=== PATIENT | male | born 1955 | race American Indian/Alaskan Native ===

== ENCOUNTER 2016-07-13 11:28 | Outpatient (CLI) | payer MEDICARE ==
--- NOTE | 2016-07-13 12:21 | XRay Report ---
ROUTINE CHEST, TWO VIEWS: HISTORY: Cough. There is subtle infiltrate in the right upper lobe concerning for early pneumonia. The left lung is clear. No pleural effusion or pneumothorax. Normal heart and mediastinal structures. Normal bony thorax. IMPRESSION: Subtle right upper lobe infiltrate concerning for pneumonia. If no fever is present, further evaluation with CT chest with contrast is recommended.
== END 2016-07-13 11:29 | disposition home or self-care (01) ==
LOC: XRAY 11:28
PROVIDERS: ATTEND Internal Medicine
DX: R05 Cough (principal); R91.8 Other nonspecific abnormal finding of lung field
CPT/HCPCS: 71020

== ENCOUNTER 2018-03-03 07:00 | Outpatient (CLI) | payer MEDICARE ==
--- NOTE | 2018-03-03 17:58 | Magnetic Resonance Report ---
FINAL REPORT EXAM: MR CERVICAL SPINE WO CON HISTORY: CERVICAL RADICULITIS AND STENOSIS/HX ACDF TECHNIQUE: T1 and T2 weighted sagittal and T2 weighted axial images of the cervical spine were obtained. Comparison: None FINDINGS: Marrow signal and bony alignment are normal. The vertebral heights are maintained. There is previous C6-C7 anterior discectomy and fusion with retained hardware. There is loss of height of the C3-C4 and C5-C6 discs. There is the appearance of canal stenosis at the C3-C4, C4-C5 and C5-C6 level secondary to spondylitic change. There is mild impingement on the anterior aspect of the cervical cord at the C3-C4 and C5-C6 levels. The cervical cord is normal in size and signal. The paraspinous soft tissues are unremarkable. C2-C3: Unremarkable. C3-C4: Mild canal and moderate to marked bilateral foraminal stenosis, central disc protrusion/herniation, degenerative facet change, uncovertebral degenerative change. C4-C5: Mild canal stenosis, moderate to marked foraminal stenosis, endplate osteophyte/disc complex formation, uncovertebral degenerative change, degenerative facet change. C5-C6: Mild canal stenosis, moderate bilateral foraminal stenosis, endplate osteophyte/disc complex formation, uncovertebral degenerative change, degenerative facet change C6-C7: Previous anterior discectomy and fusion. C7-T1: Degenerative facet change. IMPRESSION: 1. Spondylitic change with multiple level canal and foraminal stenosis. 2. Previous anterior discectomy and fusion with retained hardware C6-C7.
== END 2018-03-03 07:01 | disposition home or self-care (01) ==
LOC: MRI 07:00
PROVIDERS: ATTEND Anesthesiology
DX: M47.893 Other spondylosis, cervicothoracic region (principal); M48.02 Spinal stenosis, cervical region; I10 Essential (primary) hypertension; K21.9 Gastro-esophageal reflux disease without esophagitis; Z90.49 Acquired absence of other specified parts of digestive tract
CPT/HCPCS: 72141

== ENCOUNTER 2018-08-08 05:48 | Day surgery (SDC) | payer MEDICARE ==
[2018-08-08] MEDS ORDERED: ECOTRIN PO ONE (06:40)
[2018-08-08 07:12] LABS: Hematocrit 38.1 % (35.5-45.6); Hemoglobin 12.8 gm/dl (11.8-15.2); Mean Corpuscular HGB Conc 34 % (32-34); Mean Corpuscular Volume 85 fl (84-94); Platelet Count 188 K/mm3 (140-440); Red Blood Count 4.48 M/mm3 (3.65-5.03); Red Cell Distribution Width 13.7 % (13.2-15.2)
[2018-08-08] MEDS: NACL 0.9% 500 ML 500 ML IV SCH ×2 (07:16→09:08)
[2018-08-08 07:27] LABS: INR 0.91 (0.87-1.13)
[2018-08-08 07:28] LABS: Partial Thromboplastin Time 30.4 Sec. (24.2-36.6)
[2018-08-08 07:30] LABS: BUN/Creatinine Ratio 11; Blood Urea Nitrogen 11 mg/dL (9-20); Calcium 9.2 mg/dL (8.4-10.2); Hemolysis Index 26
[2018-08-08] MEDS ORDERED: HEPARIN/NS 5000 UNIT/500ML(CATH LAB) 1,000 ML IR ONE (08:16)
[2018-08-08 08:39] LABS: Anisocytosis 1+; Basophils % (Manual) 0 % (0.0-1.8); Eosinophils % (Manual) 0 % (0.0-4.3); Poikilocytosis 1+; Total Cells Counted 100
[2018-08-08 08:40] LABS: Ovalocytes Few; Platelet Estimate Consistent w Auto
[2018-08-08] MEDS: SUBLIMAZE ONE ×2 (09:09→09:16)
[2018-08-08] MEDS: VERSED ONE ×2 (09:09→09:19)
[2018-08-08] MEDS: XYLOCAINE 2% INFILTRATI ONE ×2 (09:09→09:16)
[2018-08-08] MEDS: CALAN ONE ×4 (09:10→09:27)
[2018-08-08] MEDS: HEPARIN 10,000 UNITS/10 ML ONE ×4 (09:10→09:27)
[2018-08-08] MEDS: NITROGLYCERIN SYRINGE 3 ML ONE ×2 (09:11→09:27)
[2018-08-08 11:41] VITALS: BP 166/72
--- NOTE | 2018-08-08 18:44 | Cardiac Catherization Report ---
HISTORY: The patient is a 63-year-old male with a history of shortness of breath and an abnormal stress test. Coronary angiography was recommended. PROCEDURE: Left heart catheterization, ventriculography, and coronary angiography via the right radial artery using 5-[place] Samuel catheters and a modified right Amplatz, and pigtail catheter. COMPLICATIONS: None. TISSUE SAMPLES: None. PREPROCEDURE DIAGNOSIS: Coronary artery disease. POSTPROCEDURE DIAGNOSES: Mild coronary artery disease. ESTIMATED BLOOD LOSS: 10-20 mL. SEDATION: Intravenous Versed and fentanyl. HEMODYNAMICS: Central aortic pressure 118/67, left ventricular pressure 119/17. ANGIOGRAPHIC RESULTS: 1. Left ventricle: The ventriculogram reveals a normal sized left ventricle with normal systolic function. The ejection fraction is approximately 55%. 2. Right coronary artery: This is a codominant vessel and it is diffusely irregular. The ostium is narrowed by 50-60%. This may be atherosclerosis versus spasm. There was no dampening of the pressure or difficulty in cannulating the vessel. 3. Left coronary artery: This vessel is diffusely irregular. The left main is free of remarkable lesions. The circumflex contains an ostial 40% lesion. The LAD contains an ostial 40% stenosis and the mid LAD contains a 20% stenosis. SEDATION TIME: Initiated at 9:09 a.m. PROCEDURE START TIME: 9:15 a.m. PROCEDURE STOP TIME: 9:45 a.m. TOTAL SEDATION TIME: 36 minutes. FINAL IMPRESSION: Relatively mild diffuse coronary artery disease with normal left ventricular function. Note the ostium of the right coronary artery was stenosed to moderate degree, this may have been coronary spasm. The narrowing was noted after the procedure was complete. PLAN: Aggressive medical therapy, CAD risk factor modification. Office followup within 7 days. Consider pulmonary workup with shortness of breath continues. JOB# [id number] GOYO/STEFFANY
== END 2018-08-08 13:00 | disposition home or self-care (01) ==
LOC: CATHLABREC 05:48
PROVIDERS: ATTEND Internal Medicine Cardiovascular Disease
DX: I25.10 Atherosclerotic heart disease of native coronary artery without angina pectoris (principal); E78.00 Pure hypercholesterolemia, unspecified; I10 Essential (primary) hypertension; I48.91 Unspecified atrial fibrillation; K21.9 Gastro-esophageal reflux disease without esophagitis; M19.90 Unspecified osteoarthritis, unspecified site; E03.9 Hypothyroidism, unspecified; F32.9 Major depressive disorder, single episode, unspecified; Z98.890 Other specified postprocedural states; Z90.49 Acquired absence of other specified parts of digestive tract; Z79.899 Other long term (current) drug therapy; Z98.42 Cataract extraction status, left eye; Z98.41 Cataract extraction status, right eye
CPT/HCPCS: 36415; 80048; 85007; 85025; 85610; 85730; 93005; 93010; 93458; 99156; 99157; C1769; C1894; J1644; J2250; J3010; J7040; Q9967

== ENCOUNTER 2021-01-22 10:22 | Outpatient (CLI) | payer MEDICARE ==
[2021-01-22 11:25] LABS: Blood Urea Nitrogen 14 mg/dL (9-20)
--- NOTE | 2021-01-22 12:42 | Cat Scan Report ---
CTA CHEST WITH CONTRAST INDICATION : ATHEROSCLEROTIC HEART DISEASE OMNI 350 100 ML. TECHNIQUE: Axial imaging performed through the chest, with contrast bolus timing set to maximize opa cification of the pulmonary arteries. Sagittal and coronal reformatted images. 3-plane MIP reformatte d images were obtained. All CT scans at this location are performed using CT dose reduction for ALAR A by means of automated exposure control. 100 mL of intravenous contrast administered. COMPARISON: None FINDINGS: Bolus: Contrast bolus timing is adequate. PTE: No filling defect is present to suggest PTE. Aorta: The aorta is normal caliber with minimal partially calcified plaques near the arch. No aneurys m, stenosis or dissection. Aberrant origin of the right subclavian artery is noted which passes poste rior to the trachea and esophagus. Mediastinum: Heart size is within normal limits. Mild to moderate coronary artery calcifications are noted in the left anterior descending. No pericardial abnormality. No pathologic mediastinal adenop athy. Lungs: The lungs are clear with no significant parenchymal disease. No evidence for mass, infiltrate , pleural fluid or pneumothorax. Bones: Degenerative changes in the spine with nothing acute. Upper abdomen: Limited imaging of the upper abdomen shows nothing acute. IMPRESSION: Mild coronary artery disease as described. No evidence for pulmonary embolus. Thoracic aorta is normal caliber and without acute abnormality. Aberrant origin of the right subclavi an artery is noted as described. Lungs clear. Signer Name: Joaquim Jain Jr, MD Signed: 01/22/2021 12:37 PM Workstation Name: [id number]
== END 2021-01-22 10:23 | disposition home or self-care (01) ==
LOC: CT 10:22
PROVIDERS: ATTEND Internal Medicine Cardiovascular Disease
DX: I25.10 Atherosclerotic heart disease of native coronary artery without angina pectoris (principal); M47.814 Spondylosis without myelopathy or radiculopathy, thoracic region
CPT/HCPCS: 36415; 71275; 82565; 84520; Q9967

== ENCOUNTER 2021-07-22 07:28 | Day surgery (SDC) | payer MEDICARE ==
[2021-07-22] MEDS ORDERED: ASPIRIN EC 325 MG TAB PO SCH (08:30)
[2021-07-22 08:57] LABS: Basophils % (Auto) 0.6 % (0.0-1.8); Eosinophils # (Auto) 0.1 K/mm3 (0.0-0.4); Eosinophils % (Auto) 2.2 % (0.0-4.3); Hematocrit 40.6 % (35.5-45.6); Lymphocytes # (Auto) 1.9 K/mm3 (1.2-5.4); Lymphocytes % (Auto) 54.5 % (13.4-35.0); Mean Corpuscular HGB Conc 32 % (32-34); Mean Corpuscular Volume 83 fl (84-94); Monocytes # (Auto) 0.3 K/mm3 (0.0-0.8); Monocytes % (Auto) 7.7 % (0.0-7.3); Platelet Count 171 K/mm3 (140-440); Red Cell Distribution Width 14.6 % (13.2-15.2)
[2021-07-22] MEDS ORDERED: SODIUM CHLORIDE 0.9% 500 ML 500 ML IV SCH (09:00)
[2021-07-22 09:15] LABS: BUN/Creatinine Ratio 19; Blood Urea Nitrogen 17 mg/dL (9-20); Calcium 9.1 mg/dL (8.4-10.2); Hemolysis Index 260
[2021-07-22 09:19] LABS: INR 0.88 (0.87-1.13)
[2021-07-22] MEDS ORDERED: HEPARIN/NS 5000 UNIT/500ML 1,000 ML IR ONE (09:45)
[2021-07-22] MEDS ORDERED: VERAPAMIL 5 MG/2 ML INJ ONE (09:45)
[2021-07-22] MEDS ORDERED: LIDOCAINE (2%) 20 MG/1 ML VIAL 20 ML MDV INFILTRATI ONE (09:46)
[2021-07-22] MEDS ORDERED: NITROGLYCERIN SYRINGE 3 ML ONE (09:46)
[2021-07-22 10:02] LABS: BUN/Creatinine Ratio 18; Blood Urea Nitrogen 16 mg/dL (9-20); Calcium 9.3 mg/dL (8.4-10.2); Hemolysis Index 7
[2021-07-22] MEDS ORDERED: MIDAZOLAM 2 MG/2 ML INJ ONE (10:30)
[2021-07-22] MEDS ORDERED: fentaNYL 100 MCG/2 ML INJ ONE (10:31)
[2021-07-22] MEDS: HEPARIN 10,000 UNITS/10 ML VIAL ONE ×2 (10:44→11:05)
[2021-07-22] MEDS ORDERED: traMADol 50 MG TAB PO PRN (11:56)
[2021-07-22] MEDS ORDERED: SODIUM CHLORIDE 0.9% 1000 ML 1,000 ML IV SCH (12:00)
--- NOTE | 2021-07-22 12:00 | Discharge Summary ---
Short Stay Discharge Plan Activity: advance as tolerated Weight Bearing Status: Full Weight Bearing Diet: low fat, low cholesterol, low salt, diabetic Wound: keep clean and dry Special Instructions: smoking cessation, no heavy lifting (3 days) Follow up with: EVERTON WONG MD [Primary Care Provider] - 7 Days MARIE PENA MD [Staff Physician] - 7 Days
--- NOTE | 2021-07-22 12:02 | Event Note ---
Date: 07/22/21 Patient underwent cardiac catheterization with intravascular ultrasound interrogation of the distal left main. No complications. Significant but nonobstructive disease of the distal left main in addition to ostial right coronary artery disease is recommended for CT surgical assessment. Patient will be observed for 6 to 8 hours following IVUS intervention, discharged on medical therapy to follow-up as soon as possible with CT surgery in the outpatient. 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
--- NOTE | 2021-07-22 12:07 | Cardiac Catherization Report ---
DATE OF SERVICE: 07/22/2021 CARDIAC CATHETERIZATION REPORT REASONS FOR PROCEDURE: History of coronary artery disease, preoperative prostate biopsy. INDICATIONS: The patient is a 66-year-old man who has coronary artery disease, documented nonobstructive any previous cardiac catheterization 2 years ago. He is currently undergoing preoperative cardiac assessment for prostate biopsy, and referred for a followup cardiac catheterization for reassessment of his coronary artery disease. Comorbidities include paroxysmal atrial fibrillation, for which the patient is on Eliquis anticoagulation. The anticoagulation was held 2 days prior to the current procedure. PROCEDURES: 1. Left heart catheterization. 2. Selective left and right coronary angiography. 3. Left ventricular angiography. 4. Intravascular ultrasound interrogation of the left main coronary artery. 5. Sedation time start 10:40, end 11:21. DESCRIPTION OF PROCEDURE: The patient was prepped and draped in a sterile fashion after informed consent. The right radial cath site was prepped and draped after a negative Pranav's test. The right radial artery was entered using the Seldinger technique followed by placement of a 6-Burmese hydrophilic sheath. Routine radial cocktail was administered via the sheath. Selective left and right coronary angiography was performed using a #3.5 left Samuel and a #4 right Samuel. A pigtail catheter was used for left ventricular angiography. The angiograms were reviewed. FINDINGS: HEMODYNAMICS: Left ventricular end-diastolic pressure was 15. Ascending aortic pressure was 128/67. There was no significant pressure gradient on pullback across the aortic valve. CORONARY ANGIOGRAPHY: The left main coronary artery contained distal narrowing, with up to 30-50% luminal stenosis in the cranial angulation. There was also evidence of a plaque ulcer of the distal left main just before its bifurcation into the LAD and circumflex arteries. The left anterior descending artery contained diffuse mild atherosclerosis of its proximal to mid segment, but otherwise this vessel and its diagonal branches were free of significant disease. The circumflex artery and its obtuse marginal branches were free of significant disease. The right coronary artery was a fairly large caliber dominant vessel. There was an 80% stenosis of the vessel at its ostium, associated with catheter tip pressure damping on engagement. We administered intracoronary nitroglycerin, with no change in the lesional severity at the ostium. There was normal left ventricular systolic function with ejection fraction of 55-60%. INTRAVASCULAR ULTRASOUND: We proceeded with intravascular ultrasound interrogation of the distal left main lesion. We selected a #3.5 left Samuel guiding catheter and advanced to the left coronary ostium. A 0.014 inch Dock Builder 50 guidewire was introduced into the vessel down the LAD. The intravascular ultrasound probe was then used to interrogate the distal left main and proximal LAD. At the distal left main, we found an eccentric, calcified plaque with a minimum luminal area of 8.7 square mm, and a minimum lumen diameter of 2.5 mm. The catheters and the wires were then removed, post-IVUS angiograms revealed no change in the left main or LAD post procedure. RIYA 3 flow was maintained down the vessel. The sheaths were removed and hemostasis achieved using a TR band. The patient was returned to the postprocedure unit in stable condition. There were no complications. CONCLUSION: 1. Coronary artery disease with an ulcerated distal left main lesion as described above. Intravascular ultrasound interrogation shows a minimum distal left main area of 8.7 square mm, and the minimal lumen diameter of 2.5 mm. 2. Severe ostial disease of a dominant right coronary artery. 3. Well preserved left ventricular systolic function, ejection fraction 55-60%. RECOMMENDATIONS: The patient will be referred for CT surgical assessment of the distal left main disease and the ostial RCA stenosis. TID: [id number] RECEIPT: [id number] MARILU HARTLEY
[2021-07-22 17:22] VITALS: BP 149/68
--- NOTE | 2021-07-23 08:46 | Electrocardiograph Report ---
[facility] Test Date: 2021-07-22 Test Time: 09:26:40 Pat Name: RONAL BARFIELD Department: Room: Gender: M Licensed Surveyor: RAMANDEEP : 1955 Requested By: JUANCHO VALDES Order Number: [id number] Reading MD: Keyur Harris Measurements Intervals [place] Rate: 57 P: 32 [place]: 207 QRS: 36 QRSD: 79 T: 31 QT: 402 QTc: 392 Interpretive Statements Sinus rhythm Probable left ventricular hypertrophy No previous ECG available for comparison Electronically Signed On 07-23-2021 8:46:01 EST by Keyur Harris
== END 2021-07-22 18:35 | disposition home or self-care (01) ==
LOC: CATHLABREC 07:28
PROVIDERS: ATTEND Internal Medicine Cardiovascular Disease
DX: R94.39 Abnormal result of other cardiovascular function study (principal); I25.10 Atherosclerotic heart disease of native coronary artery without angina pectoris; I10 Essential (primary) hypertension; E78.5 Hyperlipidemia, unspecified; F32.9 Major depressive disorder, single episode, unspecified; M19.90 Unspecified osteoarthritis, unspecified site; I48.91 Unspecified atrial fibrillation; Z79.899 Other long term (current) drug therapy; Z98.890 Other specified postprocedural states
CPT/HCPCS: 36415; 80048; 85025; 85610; 92978; 93005; 93010; 93458; 99156; 99157; C1753; C1769; C1887; C1894; J1644; J1815; J2250; J3010; J3490; J7040; Q9967